=== PATIENT | female | born 2000 | race Caucasian/White ===

== ENCOUNTER 2023-10-13 01:42 | Emergency (ER) | payer MEDICAID | END 2023-10-13 02:29 | disposition home or self-care (01) | LOC: ERS 01:42 | DX: S80.01XA Contusion of right knee, initial encounter (principal); S80.02XA Contusion of left knee, initial encounter; F41.9 Anxiety disorder, unspecified; W18.30XA Fall on same level, unspecified, initial encounter | CPT/HCPCS: 99283 ==